=== PATIENT | male | born 1980 | race Caucasian/White ===

== ENCOUNTER 2018-08-03 22:09 | Emergency (ER) | payer OTHER ==
[~2018-08-03] VITALS: Ht 170.2 cm; Wt 81.7 kg
[~2018-08-03 22:09] MED LIST: AMOXICILLIN500 M1 PO; CHERATUSSIN AC118 ML PO; IBUPROFEN 800800 MG PO; NOHOMEMEDICATIONS
[2018-08-03] MEDS ORDERED: NORCO 5-325 TA1 EACH PO (23:39)
[2018-08-03] MEDS ORDERED: BACTRIM DS TAB1 EACH PO (23:39)
[2018-08-03] MEDS ORDERED: KEFLEX500 M1 PO (23:39)
[2018-08-04 00:01] VITALS: BP 129/82
== END 2018-08-04 00:03 | disposition home or self-care (01) ==
LOC: M.ERS 22:09
DX: L05.01 Pilonidal cyst with abscess (principal); F17.210 Nicotine dependence, cigarettes, uncomplicated

== ENCOUNTER 2019-03-10 10:47 | Emergency (ER) | payer OTHER ==
[~2019-03-10] VITALS: Ht 167.6 cm; Wt 83.9 kg
[~2019-03-10 10:47] MED LIST changes: +BACTRIM DS TAB1 EACH PO; +KEFLEX500 M1 PO; +NORCO 5-325 TA1 EACH PO
[2019-03-10 11:37] LABS: ABSOLUTE BASOPHILS 0.1 thou/uL (0.0-0.2); ABSOLUTE EOSINOPHILS 0.3 thou/uL (0.0-0.7); ABSOLUTE LYMPHOCYTES 2.4 thou/uL (0.8-5.3); ABSOLUTE MONOCYTES 0.8 thou/uL (0.0-1.2); ABSOLUTE NEUTROPHILS 7.1 thou/uL (1.6-8.1); BASOPHILS 1.1 %; EOSINOPHILS 3.2 %; HEMATOCRIT 48.7 % (42.0-52.0); HEMOGLOBIN 17.2 gm/dL (14.0-18.0); LYMPHOCYTES 22.6 %; MCH 29.9 pg (26.0-34.0); MCHC 35.3 g/dL (28.0-37.0); MCV 84.6 fL (80.0-100.0); MONOCYTES 7.1 %; MPV 9.1 fl. (7.2-11.1); NUCLEATED RBCS 0 /100WBC; PLATELET COUNT* 245 thou/uL (150-400); RBC 5.76 mil/uL (4.50-6.00); RDW-CV 13.4 % (10.5-14.5); WBC 10.7 thou/uL (4.0-11.0)
[2019-03-10 11:52] LABS: ALBUMIN 4.6 g/dL (3.4-5.0); CREATININE 0.9 mg/dL (0.6-1.3); POTASSIUM 4.1 mmol/L (3.5-5.1); TOTAL BILIRUBIN 0.5 mg/dL (<0.1-1.0); TOTAL PROTEIN 8.8 g/dL (6.4-8.2)
[2019-03-10 11:53] LABS: INFLUENZA A ANTIGEN Negative (Negative); INFLUENZA B ANTIGEN Negative (Negative)
[2019-03-10] MEDS ORDERED: ZANAFLEX4 MG PO (12:50)
[2019-03-10] MEDS ORDERED: NAPROSYN500 MG PO (12:50)
[2019-03-10 13:02] VITALS: BP 133/84
== END 2019-03-10 13:02 | disposition home or self-care (01) ==
LOC: M.ERS 10:47
PROVIDERS: Nurse Practitioner Family
DX: M54.2 Cervicalgia (principal); J43.9 Emphysema, unspecified; F17.210 Nicotine dependence, cigarettes, uncomplicated